=== PATIENT | male | born 1950 | race Caucasian/White ===

== ENCOUNTER 2020-10-16 01:35 | Inpatient (IN) ==
[2020-10-16 02:18] LABS: Basophils % 0.3 %; Eosinophils % 0.1 %; Hematocrit 34.5 % (37.5-50.1); Hemoglobin 11.4 g/dL (12.9-16.9); Immature Granulocytes % 1.3 % (0-4); Lymphocytes # 0.6 K/mcL (0.6-4.6); Lymphocytes % 5.1 %; Mean Corpuscular Hemoglobin 30.3 pg (28.0-33.3); Mean Corpuscular Volume 91.8 fL (83.0-100.0); Mean Platelet Volume 8.5 fL (9.4-12.4); Monocytes # 0.4 K/mcL (0.0-1.3); Monocytes % 3.3 %; Neutrophils # 10.8 K/mcL (1.6-8.9); Platelet Count 245 K/mcL (140-400); Red Blood Count 3.76 M/mcL (4.19-5.50); Red Cell Distribution Width 12.6 % (11.5-14.5); Segmented Neutrophils % 89.9 %
[2020-10-16 02:43] LABS: Alanine Aminotransferase 19 Units/L (7-52); Albumin 3.2 g/dL (3.5-5.7); Alkaline Phosphatase 79 Units/L (34-104); Aspartate Amino Transferase 13 Units/L (13-39); BUN/Creatinine Ratio 21 (6-26); Bilirubin,Direct 0.1 mg/dL (0.0-0.2); Bilirubin,Indirect 0.3 mg/dL (0.0-1.0); Bilirubin,Total 0.4 mg/dL (0.3-1.0); Blood Urea Nitrogen 19 mg/dL (8-23); Calcium 8.6 mg/dL (8.6-10.3); Carbon Dioxide 24 mEq/L (23-29); Chloride 98 mEq/L (98-107); Globulin 3.1 g/dL (2.4-3.5); Glucose 233 mg/dL (70-105); Osmolality,Calculated 284 (280-300); Potassium 3.8 mEq/L (3.5-5.1); Sodium 132 mEq/L (136-145); Total Protein 6.3 g/dL (6.4-8.9); Troponin I 0.06 ng/mL (< 0.04); Uric Acid 3.5 mg/dL (2.3-7.6); eGFR For African Americans > 60 (> 60); eGFR For Non-African Americans > 60 (> 60)
[2020-10-16] MEDS ORDERED: Aspirin 81 MG TAB.CHEW PO ONE (02:45)
[2020-10-16] MEDS ORDERED: Piperacillin/Tazobactam 3.375 GM in 0.9 % Sodium Chloride Mini Bag 100 ML IVPB ONE (02:49)
[2020-10-16] MEDS ORDERED: 0.9 % Sodium Chloride 1,000 ML IVC ONE (02:49)
[2020-10-16] MEDS ORDERED: Ibuprofen 400 MG TABLET PO ONE (03:39)
[2020-10-16] MEDS ORDERED: Piperacillin/Tazobactam 3.375 GM in Water for inj. (sterile) 20 ML IVP ONE (04:00)
[2020-10-16 04:42] LABS: C-Reactive Protein 253 mg/L (Less than 10); Creatine Kinase 83 Units/L (30-223)
[2020-10-16] MEDS ORDERED: *HR* OxyCODONE Immed Rel 5 MG TABLET PO PRN ×2 (04:59→05:06)
[2020-10-16] MEDS ORDERED: Naloxone 0.4 MG/ML INJ IVP PRN (04:59)
[2020-10-16] MEDS ORDERED: D5% in Water 1,000 ML IVC PRN (05:11)
[2020-10-16] MEDS ORDERED: Dextrose Gel 15 GM/37.5 ML TUBE PO PRN ×2 (05:11)
[2020-10-16] MEDS ORDERED: *HR* Dextrose 50 % in Water (Vial) 50 ML VIAL IVP PRN (05:11)
[2020-10-16] MEDS: CeFAZolin 2 GM/120 ML BAG IVPB SCH ×2 (06:13→12:04)
[2020-10-16] MEDS: Gabapentin 100 MG CAPSULE PO SCH ×4 (06:14→22:25)
[2020-10-16] MEDS: Acetaminophen 325 MG TABLET PO PRN ×2 (07:36→17:16)
[2020-10-16] MEDS: Insulin LISPRO 300 UNITS/3 ML VIAL SUBQ SCH ×4 (07:37→22:11)
[2020-10-16] MEDS: Insulin DETEMIR 100 UNIT/ML X5UNITS SUBQ SCH ×2 (08:25→22:20)
[2020-10-16] MEDS: Aspirin 81 MG TAB.CHEW PO SCH (08:26)
[2020-10-16 08:30] LABS: Bilirubin,Urine Negative (Negative); Blood,Urine Negative (Negative); Clarity,Urine Clear (Clear); Color,Urine Yellow (Yellow); Glucose,Urine (UA) 100 mg/dL (Normal); Ketones,Urine Negative (Negative); Leukocyte Esterase,Urine Negative (Negative); Mucus,Urine Few per lpf (None-Few); Nitrite,Urine Negative (Negative); Protein,Urine 70 mg/dL (Neg-Trace); RBC,Urine 0-3 per hpf (0-3); Specific Gravity,Urine > 1.030 (1.010-1.025); Squamous Epithelial Cell,Urine Few per hpf (None-Few); Urobilinogen,Urine Normal (Normal); WBC,Urine 0-3 per hpf (0-3)
[2020-10-16 11:26] LABS: Adenovirus Not Detected (Not Detect); Bordetella Pertussis Not Detected (Not Detect); Chlamydophila pneumoniae Not Detected (Not Detect); Coronavirus 229E Not Detected (Not Detect); Coronavirus HKU1 Not Detected (Not Detect); Coronavirus NL63 Not Detected (Not Detect); Coronavirus OC43 Not Detected (Not Detect); Human Metapneumovirus Not Detected (Not Detect); Human Rhinovirus/Enterovirus Not Detected (Not Detect); Influenza A Subtype 2009 H1 Not Detected (Not Detect); Influenza B Not Detected (Not Detect); Mycoplasma pneumoniae Not Detected (Not Detect); Parainfluenza Virus 1 Not Detected (Not Detect); Parainfluenza Virus 2 Not Detected (Not Detect); Parainfluenza Virus 3 Not Detected (Not Detect); Parainfluenza Virus 4 Not Detected (Not Detect); Respiratory Syncytial Virus Not Detected (Not Detect); SARS-CoV-2 Not Detected (Not Detect)
[2020-10-16] MEDS ORDERED: Isovue-370 500 ML BOTTLE IVP ONE (13:12)
[2020-10-16] MEDS: Piperacillin/Tazobactam 3.375 GM in 0.9 % Sodium Chloride Mini Bag 100 ML IVPB SCH ×2 (15:22→23:59)
[2020-10-16] MEDS: 0.9 % Sodium Chloride 1,000 ML IVC SCH (17:37)
[2020-10-16 17:42] LABS: Alanine Aminotransferase 16 Units/L (7-52); Albumin 2.7 g/dL (3.5-5.7); Albumin/Globulin Ratio 0.9 (1.1-2.2); Alkaline Phosphatase 68 Units/L (34-104); Aspartate Amino Transferase 14 Units/L (13-39); BUN/Creatinine Ratio 23 (6-26); Bilirubin,Total 0.3 mg/dL (0.3-1.0); Blood Urea Nitrogen 18 mg/dL (8-23); Calcium 8.1 mg/dL (8.6-10.3); Carbon Dioxide 25 mEq/L (23-29); Chloride 98 mEq/L (98-107); Globulin 2.9 g/dL (2.4-3.5); Glucose 218 mg/dL (70-105); Osmolality,Calculated 279 (280-300); Potassium 3.8 mEq/L (3.5-5.1); Sodium 130 mEq/L (136-145); Total Protein 5.6 g/dL (6.4-8.9); Troponin I 0.03 ng/mL (< 0.04); eGFR For African Americans > 60 (> 60); eGFR For Non-African Americans > 60 (> 60)
[2020-10-16 17:43] LABS: Hematocrit 33.9 % (37.5-50.1); Mean Corpuscular HGB Conc 32.4 g/dL (31.6-35.5); Mean Corpuscular Hemoglobin 29.6 pg (28.0-33.3); Mean Corpuscular Volume 91.1 fL (83.0-100.0); Mean Platelet Volume 8.3 fL (9.4-12.4); Platelet Count 212 K/mcL (140-400); Red Blood Count 3.72 M/mcL (4.19-5.50); Red Cell Distribution Width 12.7 % (11.5-14.5); White Blood Count 10.6 K/mcL (4.3-11.1)
[2020-10-16] MEDS ORDERED: *HR* Heparin 5,000 UNIT/ML VIAL SQ SCH (18:00)
[2020-10-16] MEDS: Dorzolamide/Timolol OPTH 10 ML BOTTLE BOTH EYES SCH (22:24)
[2020-10-16] MEDS: Latanoprost 2.5 ML BOTTLE BOTH EYES SCH (22:25)
[2020-10-17] MEDS: *HR* Enoxaparin 40 MG/0.4 ML SYRINGE SQ SCH (05:34)
[2020-10-17 06:37] LABS: Hematocrit 31.6 % (37.5-50.1); Hemoglobin 10.3 g/dL (12.9-16.9); Mean Corpuscular HGB Conc 32.6 g/dL (31.6-35.5); Mean Corpuscular Hemoglobin 29.6 pg (28.0-33.3); Mean Corpuscular Volume 90.8 fL (83.0-100.0); Mean Platelet Volume 8.6 fL (9.4-12.4); Platelet Count 208 K/mcL (140-400); Red Blood Count 3.48 M/mcL (4.19-5.50); Red Cell Distribution Width 12.7 % (11.5-14.5)
[2020-10-17 07:03] LABS: BUN/Creatinine Ratio 22 (6-26); Blood Urea Nitrogen 14 mg/dL (8-23); Calcium 8.2 mg/dL (8.6-10.3); Carbon Dioxide 21 mEq/L (23-29); Chloride 101 mEq/L (98-107); Glucose 97 mg/dL (70-105); Osmolality,Calculated 274 (280-300); Potassium 3.6 mEq/L (3.5-5.1); Sodium 132 mEq/L (136-145); eGFR For African Americans > 60 (> 60); eGFR For Non-African Americans > 60 (> 60)
[2020-10-17] MEDS: Piperacillin/Tazobactam 3.375 GM in 0.9 % Sodium Chloride Mini Bag 100 ML IVPB SCH ×2 (07:36→16:55)
[2020-10-17] MEDS: 0.9 % Sodium Chloride 1,000 ML IVC SCH ×2 (07:39→21:56)
[2020-10-17] MEDS: Dorzolamide/Timolol OPTH 10 ML BOTTLE BOTH EYES SCH ×2 (07:43→21:51)
[2020-10-17] MEDS: Aspirin Enteric Coated 81 MG Tablet PO SCH (07:43)
[2020-10-17] MEDS: Aspirin 81 MG TAB.CHEW PO SCH (07:44)
[2020-10-17] MEDS: Gabapentin 100 MG CAPSULE PO SCH ×4 (07:45→21:47)
[2020-10-17] MEDS: Insulin LISPRO 300 UNITS/3 ML VIAL SUBQ SCH ×4 (07:52→21:51)
[2020-10-17] MEDS ORDERED: NON-FORMULARY MEDICATION 1 EACH EACH (Insulin Glargine [Lantus] 300 UNIT/3 ML Mls) SQ SCH (13:15)
[2020-10-17] MEDS: Vancomycin 1,250 MG/262.5 ML IV.SOLN IVPB SCH (16:55)
[2020-10-17] MEDS: Insulin DETEMIR 100 UNIT/ML X5UNITS SUBQ SCH (21:41)
[2020-10-17] MEDS: Latanoprost 2.5 ML BOTTLE BOTH EYES SCH (21:52)
[2020-10-18] MEDS: Piperacillin/Tazobactam 3.375 GM in 0.9 % Sodium Chloride Mini Bag 100 ML IVPB SCH ×2 (00:07→08:42)
[2020-10-18 00:46] LABS: Basophils % 0.3 %; Eosinophils # 0.1 K/mcL (0.0-0.6); Hematocrit 29.7 % (37.5-50.1); Hemoglobin 9.9 g/dL (12.9-16.9); Immature Granulocytes % 0.9 % (0-4); Lymphocytes # 0.7 K/mcL (0.6-4.6); Lymphocytes % 9.1 %; Mean Corpuscular HGB Conc 33.3 g/dL (31.6-35.5); Mean Platelet Volume 8.6 fL (9.4-12.4); Monocytes # 0.5 K/mcL (0.0-1.3); Monocytes % 6.9 %; Neutrophils # 6.3 K/mcL (1.6-8.9); Platelet Count 193 K/mcL (140-400); Red Cell Distribution Width 12.5 % (11.5-14.5); Segmented Neutrophils % 81.8 %; White Blood Count 7.7 K/mcL (4.3-11.1)
[2020-10-18 01:00] LABS: Chol/HDL Ratio 4.7 (0-4.9)
[2020-10-18 02:27] LABS: BUN/Creatinine Ratio 22 (6-26); Blood Urea Nitrogen 13 mg/dL (8-23); Calcium 7.9 mg/dL (8.6-10.3); Carbon Dioxide 23 mEq/L (23-29); Chloride 102 mEq/L (98-107); Ferritin 979 ng/mL (20-250); Glucose 184 mg/dL (70-105); Iron < 10 mcg/dL (65-175); Magnesium 1.7 mg/dL (1.6-2.6); Osmolality,Calculated 277 (280-300); Phosphorous 2.7 mg/dL (2.7-4.5); Potassium 3.5 mEq/L (3.5-5.1); Sodium 131 mEq/L (136-145); Transferrin 79 mg/dL (203-362); eGFR For African Americans > 60 (> 60); eGFR For Non-African Americans > 60 (> 60)
[2020-10-18] MEDS: Vancomycin 1,250 MG/262.5 ML IV.SOLN IVPB SCH (03:23)
[2020-10-18] MEDS: *HR* Enoxaparin 40 MG/0.4 ML SYRINGE SQ SCH (04:57)
[2020-10-18] MEDS: Gabapentin 100 MG CAPSULE PO SCH ×3 (08:42→20:23)
[2020-10-18] MEDS: Dorzolamide/Timolol OPTH 10 ML BOTTLE BOTH EYES SCH ×2 (08:43→20:23)
[2020-10-18] MEDS: Aspirin Enteric Coated 81 MG Tablet PO SCH (08:48)
[2020-10-18] MEDS ORDERED: Perflutren Lipid Microsphere 1.3 ML in 0.9 % Sodium Chloride 8.7 ML IVP PRN (08:52)
[2020-10-18] MEDS ORDERED: Gadolinium Contrast Agent (WT Based) IV PRN ×3 (09:33→11:14)
[2020-10-18 10:48] LABS: Estimated Average Glucose 163 mg/dl; Hemoglobin A1C 7.3 %
[2020-10-18] MEDS: Insulin LISPRO 300 UNITS/3 ML VIAL SUBQ SCH ×4 (16:33→20:23)
[2020-10-18] MEDS: ceFAZolin 2,000 MG in 0.9 % Sodium Chloride 100 ML IVPB SCH ×2 (16:51→23:33)
[2020-10-18] MEDS: 0.9 % Sodium Chloride 1,000 ML IVC SCH ×2 (16:51→19:48)
[2020-10-18] MEDS: Ondansetron ODT 4 MG TAB.RAPDIS SL PRN (17:00)
[2020-10-18] MEDS: Latanoprost 2.5 ML BOTTLE BOTH EYES SCH (20:23)
[2020-10-18] MEDS: Insulin DETEMIR 100 UNIT/ML X5UNITS SUBQ SCH (20:25)
[2020-10-18] MEDS ORDERED: Melatonin 3 MG TABLET PO ONE (21:35)
[2020-10-19 02:45] LABS: BUN/Creatinine Ratio 29 (6-26); Blood Urea Nitrogen 15 mg/dL (8-23); Calcium 7.7 mg/dL (8.6-10.3); Carbon Dioxide 25 mEq/L (23-29); Chloride 102 mEq/L (98-107); Glucose 173 mg/dL (70-105); Magnesium 1.8 mg/dL (1.6-2.6); Osmolality,Calculated 279 (280-300); Phosphorous 2.9 mg/dL (2.7-4.5); Potassium 3.5 mEq/L (3.5-5.1); Sodium 132 mEq/L (136-145); eGFR For African Americans > 60 (> 60); eGFR For Non-African Americans > 60 (> 60)
[2020-10-19] MEDS: Acetaminophen 325 MG TABLET PO PRN ×2 (05:01→21:20)
[2020-10-19] MEDS: *HR* Enoxaparin 40 MG/0.4 ML SYRINGE SQ SCH (05:03)
[2020-10-19] MEDS: ceFAZolin 2,000 MG in 0.9 % Sodium Chloride 100 ML IVPB SCH ×2 (09:14→17:27)
[2020-10-19] MEDS: Dorzolamide/Timolol OPTH 10 ML BOTTLE BOTH EYES SCH ×2 (09:15→20:54)
[2020-10-19] MEDS: Aspirin Enteric Coated 81 MG Tablet PO SCH (09:15)
[2020-10-19] MEDS: Insulin LISPRO 300 UNITS/3 ML VIAL SUBQ SCH ×4 (09:15→20:52)
[2020-10-19] MEDS: Gabapentin 100 MG CAPSULE PO SCH ×3 (09:16→20:55)
[2020-10-19] MEDS: 0.9 % Sodium Chloride 1,000 ML IVC SCH (10:43)
[2020-10-19] MEDS: Ondansetron ODT 4 MG TAB.RAPDIS SL PRN (11:10)
[2020-10-19] MEDS: metroNIDAZOLE 500 MG TABLET PO SCH ×2 (15:43→20:54)
[2020-10-19] MEDS: levoFLOXacin 750 MG TABLET PO SCH (15:43)
[2020-10-19] MEDS: Lactobacillus 1 EACH CAP.SPRINK PO SCH (20:54)
[2020-10-19] MEDS: Insulin DETEMIR 100 UNIT/ML X5UNITS SUBQ SCH (20:54)
[2020-10-19] MEDS: Latanoprost 2.5 ML BOTTLE BOTH EYES SCH (20:55)
[2020-10-20] MEDS: ceFAZolin 2,000 MG in 0.9 % Sodium Chloride 100 ML IVPB SCH ×5 (00:25→23:46)
[2020-10-20 05:31] LABS: Basophils % 0.3 %; Eosinophils # 0.1 K/mcL (0.0-0.6); Eosinophils % 1.6 %; Hematocrit 34.1 % (37.5-50.1); Hemoglobin 11.1 g/dL (12.9-16.9); Immature Granulocytes % 1.8 % (0-4); Lymphocytes % 10.8 %; Mean Corpuscular HGB Conc 32.6 g/dL (31.6-35.5); Mean Corpuscular Hemoglobin 29.7 pg (28.0-33.3); Mean Corpuscular Volume 91.2 fL (83.0-100.0); Mean Platelet Volume 8.8 fL (9.4-12.4); Monocytes # 0.5 K/mcL (0.0-1.3); Platelet Count 254 K/mcL (140-400); Red Blood Count 3.74 M/mcL (4.19-5.50); Red Cell Distribution Width 12.6 % (11.5-14.5); Segmented Neutrophils % 79.5 %; White Blood Count 8.8 K/mcL (4.3-11.1)
[2020-10-20 05:45] LABS: BUN/Creatinine Ratio 21 (6-26); Blood Urea Nitrogen 11 mg/dL (8-23); Calcium 8.3 mg/dL (8.6-10.3); Carbon Dioxide 28 mEq/L (23-29); Chloride 102 mEq/L (98-107); Glucose 189 mg/dL (70-105); Magnesium 1.9 mg/dL (1.6-2.6); Osmolality,Calculated 284 (280-300); Phosphorous 2.9 mg/dL (2.7-4.5); Potassium 3.7 mEq/L (3.5-5.1); Sodium 135 mEq/L (136-145); eGFR For African Americans > 60 (> 60); eGFR For Non-African Americans > 60 (> 60)
[2020-10-20] MEDS: *HR* Enoxaparin 40 MG/0.4 ML SYRINGE SQ SCH (06:25)
[2020-10-20] MEDS: 0.9 % Sodium Chloride 1,000 ML IVC SCH (06:26)
[2020-10-20] MEDS: metroNIDAZOLE 500 MG TABLET PO SCH ×3 (08:27→20:36)
[2020-10-20] MEDS: Aspirin Enteric Coated 81 MG Tablet PO SCH (08:27)
[2020-10-20] MEDS: levoFLOXacin 750 MG TABLET PO SCH (08:27)
[2020-10-20] MEDS: Lactobacillus 1 EACH CAP.SPRINK PO SCH ×2 (08:27→20:36)
[2020-10-20] MEDS: Gabapentin 100 MG CAPSULE PO SCH ×3 (08:27→20:36)
[2020-10-20] MEDS: Insulin LISPRO 300 UNITS/3 ML VIAL SUBQ SCH ×4 (08:31→20:36)
[2020-10-20] MEDS: Dorzolamide/Timolol OPTH 10 ML BOTTLE BOTH EYES SCH ×2 (08:32→20:36)
[2020-10-20] MEDS: Insulin DETEMIR 100 UNIT/ML X5UNITS SUBQ SCH (20:36)
[2020-10-20] MEDS: Latanoprost 2.5 ML BOTTLE BOTH EYES SCH (20:36)
[2020-10-20] MEDS: Acetaminophen 325 MG TABLET PO PRN (23:47)
[2020-10-21] MEDS: 0.9 % Sodium Chloride 1,000 ML IVC SCH (03:52)
[2020-10-21] MEDS: *HR* Enoxaparin 40 MG/0.4 ML SYRINGE SQ SCH (05:26)
[2020-10-21] MEDS: Insulin LISPRO 300 UNITS/3 ML VIAL SUBQ SCH ×4 (08:39→22:01)
[2020-10-21] MEDS: Aspirin Enteric Coated 81 MG Tablet PO SCH (08:44)
[2020-10-21] MEDS: levoFLOXacin 750 MG TABLET PO SCH (08:44)
[2020-10-21] MEDS: Lactobacillus 1 EACH CAP.SPRINK PO SCH ×2 (08:44→22:00)
[2020-10-21] MEDS: ceFAZolin 2,000 MG in 0.9 % Sodium Chloride 100 ML IVPB SCH ×2 (08:44→16:06)
[2020-10-21] MEDS: metroNIDAZOLE 500 MG TABLET PO SCH ×3 (08:45→22:01)
[2020-10-21] MEDS: Gabapentin 100 MG CAPSULE PO SCH ×3 (08:47→22:01)
[2020-10-21] MEDS: Dorzolamide/Timolol OPTH 10 ML BOTTLE BOTH EYES SCH ×2 (08:47→22:00)
[2020-10-21 10:40] LABS: Basophils % 0.4 %; Eosinophils # 0.2 K/mcL (0.0-0.6); Eosinophils % 1.5 %; Hematocrit 33.9 % (37.5-50.1); Hemoglobin 11.1 g/dL (12.9-16.9); Immature Granulocytes % 4.5 % (0-4); Lymphocytes # 1.1 K/mcL (0.6-4.6); Mean Corpuscular HGB Conc 32.7 g/dL (31.6-35.5); Mean Corpuscular Hemoglobin 30.2 pg (28.0-33.3); Mean Corpuscular Volume 92.1 fL (83.0-100.0); Mean Platelet Volume 8.7 fL (9.4-12.4); Monocytes # 0.5 K/mcL (0.0-1.3); Neutrophils # 8.2 K/mcL (1.6-8.9); Platelet Count 323 K/mcL (140-400); Red Blood Count 3.68 M/mcL (4.19-5.50); Red Cell Distribution Width 12.7 % (11.5-14.5); Segmented Neutrophils % 78.6 %; White Blood Count 10.5 K/mcL (4.3-11.1)
[2020-10-21 10:59] LABS: BUN/Creatinine Ratio 17 (6-26); Blood Urea Nitrogen 9 mg/dL (8-23); Calcium 8.1 mg/dL (8.6-10.3); Carbon Dioxide 30 mEq/L (23-29); Chloride 100 mEq/L (98-107); Glucose 202 mg/dL (70-105); Osmolality,Calculated 284 (280-300); Potassium 3.5 mEq/L (3.5-5.1); Sodium 135 mEq/L (136-145); eGFR For African Americans > 60 (> 60); eGFR For Non-African Americans > 60 (> 60)
[2020-10-21] MEDS ORDERED: *HR* LORazepam 1 MG TABLET PO ONE (12:27)
[2020-10-21] MEDS: Insulin DETEMIR 100 UNIT/ML X5UNITS SUBQ SCH (22:01)
[2020-10-21] MEDS: Latanoprost 2.5 ML BOTTLE BOTH EYES SCH (22:01)
[2020-10-22] MEDS: ceFAZolin 2,000 MG in 0.9 % Sodium Chloride 100 ML IVPB SCH ×4 (00:30→16:52)
[2020-10-22] MEDS: 0.9 % Sodium Chloride 1,000 ML IVC SCH (00:30)
[2020-10-22] MEDS: *HR* Enoxaparin 40 MG/0.4 ML SYRINGE SQ SCH (05:21)
[2020-10-22] MEDS ORDERED: *HR* LORazepam 1 MG TABLET PO ONE (08:16)
[2020-10-22] MEDS: Insulin LISPRO 300 UNITS/3 ML VIAL SUBQ SCH ×5 (08:35→20:29)
[2020-10-22] MEDS: metroNIDAZOLE 500 MG TABLET PO SCH ×4 (10:38→20:29)
[2020-10-22] MEDS: levoFLOXacin 750 MG TABLET PO SCH (10:39)
[2020-10-22] MEDS: Lactobacillus 1 EACH CAP.SPRINK PO SCH ×2 (10:40→20:29)
[2020-10-22] MEDS: Gabapentin 100 MG CAPSULE PO SCH ×4 (10:40→20:30)
[2020-10-22] MEDS: Aspirin Enteric Coated 81 MG Tablet PO SCH (10:40)
[2020-10-22] MEDS: Dorzolamide/Timolol OPTH 10 ML BOTTLE BOTH EYES SCH ×2 (10:46→20:30)
[2020-10-22 12:21] LABS: Hematocrit 30.9 % (37.5-50.1); Hemoglobin 10.3 g/dL (12.9-16.9); Mean Corpuscular HGB Conc 33.3 g/dL (31.6-35.5); Mean Corpuscular Hemoglobin 29.9 pg (28.0-33.3); Mean Corpuscular Volume 89.6 fL (83.0-100.0); Mean Platelet Volume 8.8 fL (9.4-12.4); Platelet Count 349 K/mcL (140-400); Red Blood Count 3.45 M/mcL (4.19-5.50); Red Cell Distribution Width 12.8 % (11.5-14.5); White Blood Count 11.4 K/mcL (4.3-11.1)
[2020-10-22 12:30] LABS: BUN/Creatinine Ratio 21 (6-26); Blood Urea Nitrogen 11 mg/dL (8-23); Calcium 7.9 mg/dL (8.6-10.3); Carbon Dioxide 28 mEq/L (23-29); Chloride 99 mEq/L (98-107); Glucose 205 mg/dL (70-105); Osmolality,Calculated 281 (280-300); Potassium 3.9 mEq/L (3.5-5.1); Sodium 133 mEq/L (136-145); eGFR For African Americans > 60 (> 60); eGFR For Non-African Americans > 60 (> 60)
[2020-10-22 12:48] LABS: Basophils # 0.2 K/mcL (0.0-0.2); Eosinophils # 0.5 K/mcL (0.0-0.6); Lymphocytes # 1.8 K/mcL (0.6-4.6); Monocytes # 0.2 K/mcL (0.0-1.3); Neutrophils # 8.2 K/mcL (1.6-8.9)
[2020-10-22] MEDS: clonazePAM 1 MG TABLET PO SCH (20:28)
[2020-10-22] MEDS: Insulin DETEMIR 100 UNIT/ML X5UNITS SUBQ SCH (20:30)
[2020-10-22] MEDS: Latanoprost 2.5 ML BOTTLE BOTH EYES SCH (20:30)
[2020-10-23] MEDS: ceFAZolin 2,000 MG in 0.9 % Sodium Chloride 100 ML IVPB SCH ×3 (00:29→16:07)
[2020-10-23] MEDS: 0.9 % Sodium Chloride 1,000 ML IVC SCH ×2 (00:34→12:19)
[2020-10-23] MEDS: Acetaminophen 325 MG TABLET PO PRN (02:19)
[2020-10-23] MEDS: *HR* Enoxaparin 40 MG/0.4 ML SYRINGE SQ SCH (05:22)
[2020-10-23 07:05] LABS: Hematocrit 33.6 % (37.5-50.1); Hemoglobin 11.1 g/dL (12.9-16.9); Mean Corpuscular Hemoglobin 29.5 pg (28.0-33.3); Mean Corpuscular Volume 89.4 fL (83.0-100.0); Mean Platelet Volume 8.6 fL (9.4-12.4); Monocytes # 0.7 K/mcL (0.0-1.3); Platelet Count 423 K/mcL (140-400); Red Blood Count 3.76 M/mcL (4.19-5.50); White Blood Count 11.3 K/mcL (4.3-11.1)
[2020-10-23 07:19] LABS: BUN/Creatinine Ratio 21 (6-26); Blood Urea Nitrogen 12 mg/dL (8-23); Calcium 8.3 mg/dL (8.6-10.3); Carbon Dioxide 27 mEq/L (23-29); Chloride 101 mEq/L (98-107); Glucose 150 mg/dL (70-105); Osmolality,Calculated 283 (280-300); Sodium 135 mEq/L (136-145); eGFR For African Americans > 60 (> 60); eGFR For Non-African Americans > 60 (> 60)
[2020-10-23 07:22] LABS: Lymphocytes # 1.6 K/mcL (0.6-4.6); Neutrophils # 8.8 K/mcL (1.6-8.9); Platelet Estimate Normal (Normal); Toxic Granulation Present (Not Present)
[2020-10-23] MEDS: Insulin LISPRO 300 UNITS/3 ML VIAL SUBQ SCH ×4 (09:27→22:07)
[2020-10-23] MEDS: levoFLOXacin 750 MG TABLET PO SCH (09:42)
[2020-10-23] MEDS: clonazePAM 1 MG TABLET PO SCH ×2 (09:42→22:04)
[2020-10-23] MEDS: Lactobacillus 1 EACH CAP.SPRINK PO SCH ×2 (09:42→22:06)
[2020-10-23] MEDS: Aspirin Enteric Coated 81 MG Tablet PO SCH (09:42)
[2020-10-23] MEDS: metroNIDAZOLE 500 MG TABLET PO SCH ×3 (09:43→22:07)
[2020-10-23] MEDS: Dorzolamide/Timolol OPTH 10 ML BOTTLE BOTH EYES SCH ×2 (09:43→22:06)
[2020-10-23] MEDS: Gabapentin 100 MG CAPSULE PO SCH ×3 (09:43→22:07)
[2020-10-23] MEDS ORDERED: Lidocaine Viscous Oral Soln 15 ML SOLUTION MM PRN (10:52)
[2020-10-23] MEDS ORDERED: 0.9 % Sodium Chloride 500 ML IVC ONE (10:53)
[2020-10-23] MEDS: *HR* FentaNYL (PF) 100 MCG/2 ML VIAL IVP PRN ×3 (11:15→11:25)
[2020-10-23] MEDS: *HR* Midazolam HCl 5 MG/5 ML VIAL IVP PRN ×4 (11:15→11:30)
[2020-10-23] MEDS: Latanoprost 2.5 ML BOTTLE BOTH EYES SCH (22:07)
[2020-10-23] MEDS: Insulin DETEMIR 100 UNIT/ML X5UNITS SUBQ SCH (22:07)
[2020-10-24] MEDS: 0.9 % Sodium Chloride 1,000 ML IVC SCH (00:46)
[2020-10-24] MEDS: ceFAZolin 2,000 MG in 0.9 % Sodium Chloride 100 ML IVPB SCH ×3 (00:47→15:24)
[2020-10-24] MEDS: *HR* Enoxaparin 40 MG/0.4 ML SYRINGE SQ SCH (05:46)
[2020-10-24 06:41] LABS: BUN/Creatinine Ratio 20 (6-26); Blood Urea Nitrogen 11 mg/dL (8-23); Calcium 8.4 mg/dL (8.6-10.3); Carbon Dioxide 29 mEq/L (23-29); Chloride 100 mEq/L (98-107); Glucose 214 mg/dL (70-105); Hematocrit 33.8 % (37.5-50.1); Hemoglobin 10.9 g/dL (12.9-16.9); Mean Corpuscular HGB Conc 32.2 g/dL (31.6-35.5); Mean Corpuscular Hemoglobin 29.8 pg (28.0-33.3); Mean Corpuscular Volume 92.3 fL (83.0-100.0); Mean Platelet Volume 8.4 fL (9.4-12.4); Osmolality,Calculated 284 (280-300); Platelet Count 470 K/mcL (140-400); Red Blood Count 3.66 M/mcL (4.19-5.50); Red Cell Distribution Width 12.8 % (11.5-14.5); Sodium 134 mEq/L (136-145); eGFR For African Americans > 60 (> 60); eGFR For Non-African Americans > 60 (> 60)
[2020-10-24 07:08] LABS: Lymphocytes # 1.3 K/mcL (0.6-4.6); Monocytes # 0.5 K/mcL (0.0-1.3); Neutrophils # 11.2 K/mcL (1.6-8.9)
[2020-10-24 07:09] LABS: Reactive Lymphocytes Present (Not Present); Toxic Granulation Present (Not Present)
[2020-10-24] MEDS: Insulin LISPRO 300 UNITS/3 ML VIAL SUBQ SCH ×4 (07:37→22:15)
[2020-10-24] MEDS: clonazePAM 1 MG TABLET PO SCH ×2 (07:49→22:00)
[2020-10-24] MEDS: levoFLOXacin 750 MG TABLET PO SCH (07:49)
[2020-10-24] MEDS: Dorzolamide/Timolol OPTH 10 ML BOTTLE BOTH EYES SCH ×2 (07:49→21:58)
[2020-10-24] MEDS: metroNIDAZOLE 500 MG TABLET PO SCH ×3 (07:49→21:59)
[2020-10-24] MEDS: Gabapentin 100 MG CAPSULE PO SCH ×3 (07:49→22:01)
[2020-10-24] MEDS: Aspirin Enteric Coated 81 MG Tablet PO SCH (07:49)
[2020-10-24] MEDS: Lactobacillus 1 EACH CAP.SPRINK PO SCH ×2 (07:49→21:58)
[2020-10-24] MEDS ORDERED: clonazePAM 1 MG TABLET PO ONE (15:12)
[2020-10-24] MEDS: Latanoprost 2.5 ML BOTTLE BOTH EYES SCH (22:01)
[2020-10-24] MEDS: Insulin DETEMIR 100 UNIT/ML X5UNITS SUBQ SCH (22:15)
[2020-10-25] MEDS: ceFAZolin 2,000 MG in 0.9 % Sodium Chloride 100 ML IVPB SCH ×3 (00:39→16:00)
[2020-10-25 04:56] LABS: Hematocrit 37.5 % (37.5-50.1); Hemoglobin 12.2 g/dL (12.9-16.9); Mean Corpuscular HGB Conc 32.5 g/dL (31.6-35.5); Mean Corpuscular Volume 92.1 fL (83.0-100.0); Mean Platelet Volume 8.3 fL (9.4-12.4); Platelet Count 464 K/mcL (140-400); Red Blood Count 4.07 M/mcL (4.19-5.50); Red Cell Distribution Width 13.2 % (11.5-14.5); White Blood Count 10.5 K/mcL (4.3-11.1)
[2020-10-25] MEDS: 0.9 % Sodium Chloride 1,000 ML IVC SCH ×2 (04:58→22:50)
[2020-10-25] MEDS: *HR* Enoxaparin 40 MG/0.4 ML SYRINGE SQ SCH (04:58)
[2020-10-25 05:16] LABS: BUN/Creatinine Ratio 19 (6-26); Blood Urea Nitrogen 11 mg/dL (8-23); Calcium 8.3 mg/dL (8.6-10.3); Carbon Dioxide 25 mEq/L (23-29); Chloride 100 mEq/L (98-107); Glucose 263 mg/dL (70-105); Osmolality,Calculated 287 (280-300); Potassium 4.2 mEq/L (3.5-5.1); Sodium 134 mEq/L (136-145); eGFR For African Americans > 60 (> 60); eGFR For Non-African Americans > 60 (> 60)
[2020-10-25] MEDS: Insulin LISPRO 300 UNITS/3 ML VIAL SUBQ SCH ×4 (07:50→21:42)
[2020-10-25] MEDS: clonazePAM 1 MG TABLET PO SCH ×2 (07:51→22:46)
[2020-10-25] MEDS: metroNIDAZOLE 500 MG TABLET PO SCH ×3 (07:56→22:48)
[2020-10-25] MEDS: Gabapentin 100 MG CAPSULE PO SCH ×3 (07:56→22:48)
[2020-10-25] MEDS: Lactobacillus 1 EACH CAP.SPRINK PO SCH ×2 (07:56→22:48)
[2020-10-25] MEDS: Dorzolamide/Timolol OPTH 10 ML BOTTLE BOTH EYES SCH ×2 (07:56→22:48)
[2020-10-25] MEDS: Aspirin Enteric Coated 81 MG Tablet PO SCH (07:56)
[2020-10-25] MEDS: levoFLOXacin 750 MG TABLET PO SCH (07:56)
[2020-10-25] MEDS ORDERED: 0.9 % Sodium Chloride 250 ML ONE (08:48)
[2020-10-25] MEDS: Latanoprost 2.5 ML BOTTLE BOTH EYES SCH (22:48)
[2020-10-25] MEDS: Insulin DETEMIR 100 UNIT/ML X5UNITS SUBQ SCH (22:48)
[2020-10-26] MEDS: ceFAZolin 2,000 MG in 0.9 % Sodium Chloride 100 ML IVPB SCH ×4 (02:18→23:21)
[2020-10-26] MEDS: *HR* Enoxaparin 40 MG/0.4 ML SYRINGE SQ SCH (06:17)
[2020-10-26] MEDS: Insulin LISPRO 300 UNITS/3 ML VIAL SUBQ SCH ×4 (07:56→19:30)
[2020-10-26] MEDS: Dorzolamide/Timolol OPTH 10 ML BOTTLE BOTH EYES SCH ×2 (07:57→19:29)
[2020-10-26] MEDS ORDERED: *HR* LORazepam 2 MG/ML VIAL IVP ONE (09:05)
[2020-10-26 10:11] LABS: Influenza A PCR Negative (Negative); Influenza B PCR Negative (Negative); Resp. Syncytial Virus PCR Negative (Negative)
[2020-10-26 10:52] LABS: SARS-CoV-2 by PCR (In House) Negative (Negative)
[2020-10-26] MEDS: metroNIDAZOLE 500 MG TABLET PO SCH ×3 (11:15→19:30)
[2020-10-26] MEDS: Lactobacillus 1 EACH CAP.SPRINK PO SCH ×2 (11:15→19:29)
[2020-10-26] MEDS: clonazePAM 1 MG TABLET PO SCH ×2 (11:15→19:33)
[2020-10-26] MEDS: Aspirin Enteric Coated 81 MG Tablet PO SCH (11:15)
[2020-10-26] MEDS: Gabapentin 100 MG CAPSULE PO SCH ×3 (11:15→19:30)
[2020-10-26] MEDS: levoFLOXacin 750 MG TABLET PO SCH (11:15)
[2020-10-26] MEDS: Latanoprost 2.5 ML BOTTLE BOTH EYES SCH (19:30)
[2020-10-26] MEDS: Insulin DETEMIR 100 UNIT/ML X5UNITS SUBQ SCH (19:30)
[2020-10-26] MEDS: 0.9 % Sodium Chloride 1,000 ML IVC SCH (23:20)
[2020-10-27] MEDS: *HR* Enoxaparin 40 MG/0.4 ML SYRINGE SQ SCH (00:10)
[2020-10-27 08:02] VITALS: BP 122/74
[2020-10-27] MEDS: Aspirin Enteric Coated 81 MG Tablet PO SCH (09:05)
[2020-10-27] MEDS: Insulin LISPRO 300 UNITS/3 ML VIAL SUBQ SCH (09:05)
[2020-10-27] MEDS: ceFAZolin 2,000 MG in 0.9 % Sodium Chloride 100 ML IVPB SCH (09:05)
[2020-10-27] MEDS: Lactobacillus 1 EACH CAP.SPRINK PO SCH (09:06)
[2020-10-27] MEDS: metroNIDAZOLE 500 MG TABLET PO SCH (09:06)
[2020-10-27] MEDS: levoFLOXacin 750 MG TABLET PO SCH (09:06)
[2020-10-27] MEDS: Gabapentin 100 MG CAPSULE PO SCH (09:06)
[2020-10-27] MEDS: Dorzolamide/Timolol OPTH 10 ML BOTTLE BOTH EYES SCH (09:06)
[2020-10-27] MEDS: clonazePAM 1 MG TABLET PO SCH (09:06)
== END 2020-10-27 09:28 | DRG 871 ==
LOC: 3BNU 01:35 → EMEROOARM 01:35 → SUATTDRO 04:06 → 3BNU 04:33 → SUATTDRO 13:15 → 3BNU 10-17 12:41
PROVIDERS: ADMIT Family Medicine; ATTEND Internal Medicine

== ENCOUNTER 2020-12-19 15:22 | Inpatient (IN) ==
[2020-12-19] MEDS ORDERED: 0.9 % Sodium Chloride 1,000 ML IVC ONE ×2 (15:48→17:23)
[2020-12-19] MEDS ORDERED: Piperacillin/Tazobactam 3.375 GM in 0.9 % Sodium Chloride Mini Bag 100 ML IVPB ONE (15:48)
[2020-12-19 15:54] LABS: Red Blood Count 4.02 M/mcL (4.19-5.50)
[2020-12-19 15:55] LABS: Hematocrit 34.7 % (37.5-50.1); Hemoglobin 11.7 g/dL (12.9-16.9); Mean Corpuscular HGB Conc 33.7 g/dL (31.6-35.5); Mean Corpuscular Hemoglobin 29.1 pg (28.0-33.3); Mean Corpuscular Volume 86.3 fL (83.0-100.0); Mean Platelet Volume 8.7 fL (9.4-12.4); Platelet Count 400 K/mcL (140-400); Red Cell Distribution Width 13.6 % (11.5-14.5)
[2020-12-19 16:13] LABS: Alanine Aminotransferase 24 Units/L (7-52); Albumin/Globulin Ratio 0.9 (1.1-2.2); Alkaline Phosphatase 98 Units/L (34-104); Aspartate Amino Transferase 11 Units/L (13-39); BUN/Creatinine Ratio 39 (6-26); Bilirubin,Direct 0.1 mg/dL (0.0-0.2); Bilirubin,Indirect 0.2 mg/dL (0.0-1.0); Bilirubin,Total 0.3 mg/dL (0.3-1.0); Blood Urea Nitrogen 39 mg/dL (8-23); Calcium 9.3 mg/dL (8.6-10.3); Carbon Dioxide 22 mEq/L (23-29); Chloride 95 mEq/L (98-107); Globulin 3.5 g/dL (2.4-3.5); Glucose 313 mg/dL (70-105); Osmolality,Calculated 287 (280-300); Potassium 4.5 mEq/L (3.5-5.1); Sodium 128 mEq/L (136-145); Total Protein 6.5 g/dL (6.4-8.9); Troponin I 0.03 ng/mL (< 0.04); eGFR For African Americans > 60 (> 60); eGFR For Non-African Americans > 60 (> 60)
[2020-12-19] MEDS ORDERED: Piperacillin/Tazobactam 3.375 GM VIAL ONE (16:17)
[2020-12-19 16:39] LABS: Lymphocytes # 0.6 K/mcL (0.6-4.6); Monocytes # 0.6 K/mcL (0.0-1.3); Neutrophils # 26.9 K/mcL (1.6-8.9); Platelet Estimate Normal (Normal)
[2020-12-19 16:54] LABS: Amphetamine Screen,Urine Negative ng/mL (Cutoff=1000); Barbiturate Screen,Urine Negative ng/mL (Cutoff=200); Benzodiazepines Screen,Urine Negative ng/mL (Cutoff=200); Cannabinoid Screen,Urine Negative ng/mL (Cutoff = 50); Cocaine Screen,Urine Negative ng/mL (Cutoff= 300); Opiate Screen,Urine Negative ng/mL (Cutoff=300); Phencyclidine Screen,Urine Negative ng/mL (Cutoff=25)
[2020-12-19 16:58] LABS: Lipase 11 Units/L (11-82)
[2020-12-19 17:01] LABS: Bacteria,Urine Few per hpf (None-Few); Bilirubin,Urine Negative (Negative); Blood,Urine Small (Negative); Clarity,Urine Turbid (Clear); Color,Urine Yellow (Yellow); Glucose,Urine (UA) 50 mg/dL (Normal); Hyaline Casts,Urine Many per lpf (None Seen); Ketones,Urine 10 mg/dL (Negative); Leukocyte Esterase,Urine Trace (Negative); Mucus,Urine Few per lpf (None-Few); Nitrite,Urine Negative (Negative); Protein,Urine Trace mg/dL (Neg-Trace); Specific Gravity,Urine 1.023 (1.010-1.025); Squamous Epithelial Cell,Urine Few per hpf (None-Few); Urobilinogen,Urine Normal (Normal)
[2020-12-19] MEDS ORDERED: *HR* LORazepam 1 MG TABLET PO PRN (17:28)
[2020-12-19] MEDS ORDERED: *HR* LORazepam 2 MG/ML VIAL IM PRN (17:28)
[2020-12-19] MEDS ORDERED: polyethylene glycoL 3350 17 GM POWD.PACK PO PRN (17:28)
[2020-12-19] MEDS ORDERED: *HR* Dextrose 50 % in Water (Vial) 50 ML VIAL IVP PRN (17:31)
[2020-12-19] MEDS ORDERED: Dextrose Gel 15 GM/37.5 ML TUBE PO PRN ×2 (17:31)
[2020-12-19] MEDS ORDERED: D5% in Water 1,000 ML IVC PRN (17:31)
[2020-12-19] MEDS ORDERED: ChlorproMAZINE 25 MG/ML AMPUL IM PRN (17:32)
[2020-12-19] MEDS ORDERED: Naloxone 0.4 MG/ML INJ IVP PRN (17:33)
[2020-12-19] MEDS ORDERED: Ondansetron 4 MG/2 ML VIAL IVP PRN (17:33)
[2020-12-19] MEDS ORDERED: Acetaminophen 325 MG TABLET PO PRN (17:33)
[2020-12-19] MEDS ORDERED: chlorproMAZINE 25 MG TABLET PO PRN (17:36)
[2020-12-19] MEDS ORDERED: Insulin DETEMIR 100 UNIT/ML X5UNITS SUBQ SCH (17:45)
[2020-12-19] MEDS ORDERED: Gadolinium Contrast Agent (WT Based) IV PRN (17:57)
[2020-12-19] MEDS: clonazePAM 1 MG TABLET PO SCH (20:11)
[2020-12-19] MEDS: Insulin LISPRO 300 UNITS/3 ML VIAL SUBQ SCH ×2 (20:12→20:24)
[2020-12-19] MEDS: Dorzolamide/Timolol OPTH 10 ML BOTTLE BOTH EYES SCH (20:25)
[2020-12-19] MEDS: *HR* Heparin 5,000 UNIT/ML VIAL SQ SCH (20:25)
[2020-12-20] MEDS: Piperacillin/Tazobactam 3.375 GM in 0.9 % Sodium Chloride Mini Bag 100 ML IVPB SCH ×3 (00:13→15:55)
[2020-12-20] MEDS: *HR* Heparin 5,000 UNIT/ML VIAL SQ SCH ×2 (04:42→18:13)
[2020-12-20 07:13] LABS: Hematocrit 32.4 % (37.5-50.1); Hemoglobin 10.4 g/dL (12.9-16.9); Mean Corpuscular HGB Conc 32.1 g/dL (31.6-35.5); Mean Corpuscular Hemoglobin 28.6 pg (28.0-33.3); Mean Platelet Volume 8.6 fL (9.4-12.4); Platelet Count 295 K/mcL (140-400); Red Blood Count 3.64 M/mcL (4.19-5.50); Red Cell Distribution Width 13.9 % (11.5-14.5); White Blood Count 24.3 K/mcL (4.3-11.1)
[2020-12-20 07:30] LABS: BUN/Creatinine Ratio 55 (6-26); Blood Urea Nitrogen 30 mg/dL (8-23); Calcium 8.4 mg/dL (8.6-10.3); Carbon Dioxide 21 mEq/L (23-29); Chloride 105 mEq/L (98-107); Glucose 178 mg/dL (70-105); Osmolality,Calculated 289 (280-300); Sodium 134 mEq/L (136-145); eGFR For African Americans > 60 (> 60); eGFR For Non-African Americans > 60 (> 60)
[2020-12-20 08:38] LABS: Acinetobacter baumannii by PCR Not Detected (Not Detect); Candida albicans by PCR Not Detected (Not Detect); Candida glabrata by PCR Not Detected (Not Detect); Candida krusei by PCR Not Detected (Not Detect); Candida parapsilosis by PCR Not Detected (Not Detect); Candida tropicalis by PCR Not Detected (Not Detect); Enterobacter cloacae Cmplx PCR Not Detected (Not Detect); Enterobacteriaceae by PCR Not Detected (Not Detect); Enterococcus by PCR Not Detected (Not Detect); Escherichia coli by PCR Not Detected (Not Detect); Klebsiella oxytoca by PCR Not Detected (Not Detect); Klebsiella pneumoniae by PCR Not Detected (Not Detect); Proteus by PCR Not Detected (Not Detect); Pseudomonas aeruginosa by PCR Not Detected (Not Detect); Serratia marcescens by PCR Not Detected (Not Detect); Staphylococcus aureus by PCR DETECTED (Not Detect); Streptococcus agalactiae(B)PCR Not Detected (Not Detect); Streptococcus by PCR Not Detected (Not Detect); Streptococcus pneumoniae PCR Not Detected (Not Detect); Streptococcus pyogenes (A) PCR Not Detected (Not Detect); mecA Methicillin-Resist Gene Not Detected (Not Detect)
[2020-12-20] MEDS: Insulin LISPRO 300 UNITS/3 ML VIAL SUBQ SCH ×4 (10:00→19:22)
[2020-12-20 10:23] LABS: ABG Base Excess -1 mEq/L (-2 to 3); ABG HCO3 23 mEq/L (21-27); ABG Oxygen Saturation 100 % (95-98); ABG PCO2 36 mmHg (35-45); ABG PH 7.41 pH Units (7.32-7.45); ABG PO2 318 mmHg (85-104); ABG TCO2 24 mEq/L (20-26)
[2020-12-20] MEDS: Aspirin Enteric Coated 81 MG Tablet PO SCH (11:01)
[2020-12-20] MEDS: Insulin DETEMIR 100 UNIT/ML X5UNITS SUBQ SCH (11:02)
[2020-12-20] MEDS: clonazePAM 1 MG TABLET PO SCH ×2 (11:02→20:08)
[2020-12-20] MEDS: Dorzolamide/Timolol OPTH 10 ML BOTTLE BOTH EYES SCH ×2 (11:04→20:10)
[2020-12-20] MEDS ORDERED: CeFAZolin 2 GM/120 ML BAG IVPB ONE (17:05)
[2020-12-20] MEDS ORDERED: Acetaminophen IV 1,000 MG/100 ML BAG IVPB ONE (19:15)
[2020-12-20] MEDS: CeFAZolin 2 GM/120 ML BAG IVPB SCH (23:31)
[2020-12-21] MEDS ORDERED: CeFAZolin 2 GM/120 ML BAG IVPB SCH
[2020-12-21 04:07] LABS: Basophils % 0.2 %; Hemoglobin 11.2 g/dL (12.9-16.9)
[2020-12-21 04:09] LABS: Hematocrit 35.4 % (37.5-50.1); Immature Granulocytes % 1.4 % (0-4); Immature Platelets 3.4 % (1.1-6.1); Lymphocytes % 5.2 %; Mean Corpuscular HGB Conc 31.6 g/dL (31.6-35.5); Mean Corpuscular Hemoglobin 28.5 pg (28.0-33.3); Mean Corpuscular Volume 90.1 fL (83.0-100.0); Monocytes # 1.3 K/mcL (0.0-1.3); Neutrophils # 16.3 K/mcL (1.6-8.9); Platelet Count 294 K/mcL (140-400); Red Blood Count 3.93 M/mcL (4.19-5.50); Red Cell Distribution Width 14.3 % (11.5-14.5); Segmented Neutrophils % 86.2 %; White Blood Count 18.9 K/mcL (4.3-11.1)
[2020-12-21 04:26] LABS: BUN/Creatinine Ratio 49 (6-26); Blood Urea Nitrogen 50 mg/dL (8-23); Calcium 8.8 mg/dL (8.6-10.3); Carbon Dioxide 19 mEq/L (23-29); Chloride 106 mEq/L (98-107); Glucose 199 mg/dL (70-105); Magnesium 2.4 mg/dL (1.6-2.6); Osmolality,Calculated 301 (280-300); Potassium 4.4 mEq/L (3.5-5.1); Sodium 136 mEq/L (136-145); Vancomycin,Trough 15 mcg/mL (5-10); eGFR For African Americans > 60 (> 60); eGFR For Non-African Americans > 60 (> 60)
[2020-12-21] MEDS: *HR* Heparin 5,000 UNIT/ML VIAL SQ SCH ×2 (05:16→17:22)
[2020-12-21] MEDS: CeFAZolin 2 GM/120 ML BAG IVPB SCH ×2 (08:09→17:22)
[2020-12-21] MEDS: clonazePAM 1 MG TABLET PO SCH ×2 (08:10→19:37)
[2020-12-21] MEDS: Dorzolamide/Timolol OPTH 10 ML BOTTLE BOTH EYES SCH ×2 (08:10→21:35)
[2020-12-21] MEDS: Aspirin Enteric Coated 81 MG Tablet PO SCH (08:10)
[2020-12-21] MEDS: Insulin LISPRO 300 UNITS/3 ML VIAL SUBQ SCH ×4 (08:14→20:24)
[2020-12-21] MEDS: Insulin DETEMIR 100 UNIT/ML X5UNITS SUBQ SCH (08:14)
[2020-12-21] MEDS: Ringers Solution, Lactated 1,000 ML IVC SCH ×2 (13:15→21:35)
[2020-12-21 16:15] LABS: ABG Base Excess -2 mEq/L (-2 to 3); ABG HCO3 21 mEq/L (21-27); ABG Oxygen Saturation 96 % (95-98); ABG PCO2 31 mmHg (35-45); ABG PH 7.45 pH Units (7.32-7.45); ABG PO2 77 mmHg (85-104); ABG TCO2 22 mEq/L (20-26); Blood Gas Modality BiLevel; Blood Gas Pressure Support 6 cm H2O
[2020-12-21 20:30] LABS: Adenovirus Not Detected (Not Detect); Bordetella Pertussis Not Detected (Not Detect); Chlamydophila pneumoniae Not Detected (Not Detect); Coronavirus 229E Not Detected (Not Detect); Coronavirus HKU1 Not Detected (Not Detect); Coronavirus NL63 Not Detected (Not Detect); Coronavirus OC43 Not Detected (Not Detect); Human Metapneumovirus Not Detected (Not Detect); Human Rhinovirus/Enterovirus Not Detected (Not Detect); Influenza A Subtype 2009 H1 Not Detected (Not Detect); Influenza B Not Detected (Not Detect); Mycoplasma pneumoniae Not Detected (Not Detect); Parainfluenza Virus 1 Not Detected (Not Detect); Parainfluenza Virus 2 Not Detected (Not Detect); Parainfluenza Virus 3 Not Detected (Not Detect); Parainfluenza Virus 4 Not Detected (Not Detect); Respiratory Syncytial Virus Not Detected (Not Detect); SARS-CoV-2 Not Detected (Not Detect)
[2020-12-22] MEDS: CeFAZolin 2 GM/120 ML BAG IVPB SCH ×2 (01:16→08:20)
[2020-12-22 03:15] LABS: Hematocrit 32.2 % (37.5-50.1); Hemoglobin 10.1 g/dL (12.9-16.9); Mean Corpuscular HGB Conc 31.4 g/dL (31.6-35.5); Mean Corpuscular Hemoglobin 28.4 pg (28.0-33.3); Mean Corpuscular Volume 90.4 fL (83.0-100.0); Mean Platelet Volume 9.2 fL (9.4-12.4); Platelet Count 273 K/mcL (140-400); Red Blood Count 3.56 M/mcL (4.19-5.50); Red Cell Distribution Width 14.4 % (11.5-14.5); White Blood Count 19.2 K/mcL (4.3-11.1)
[2020-12-22 03:21] LABS: VBG HCO3 24 mEq/L (21-27); VBG PCO2 42 mmHg (41-51); VBG PH 7.37 pH Units (7.32-7.42); VBG PO2 105 mmHg (25-50)
[2020-12-22 03:26] LABS: INR 1.6; Prothrombin Time 17.8 Seconds (9.4-12.1)
[2020-12-22 03:36] LABS: Alanine Aminotransferase 11 Units/L (7-52); Albumin 2.6 g/dL (3.5-5.7); Albumin/Globulin Ratio 0.9 (1.1-2.2); Alkaline Phosphatase 74 Units/L (34-104); Aspartate Amino Transferase 19 Units/L (13-39); BUN/Creatinine Ratio 79 (6-26); Bilirubin,Indirect 0.2 mg/dL (0.0-1.0); Bilirubin,Total 0.2 mg/dL (0.3-1.0); Blood Urea Nitrogen 54 mg/dL (8-23); Calcium 8.8 mg/dL (8.6-10.3); Carbon Dioxide 24 mEq/L (23-29); Chloride 112 mEq/L (98-107); Glucose 100 mg/dL (70-105); Magnesium 2.4 mg/dL (1.6-2.6); Osmolality,Calculated 309 (280-300); Sodium 142 mEq/L (136-145); Total Protein 5.6 g/dL (6.4-8.9); eGFR For African Americans > 60 (> 60); eGFR For Non-African Americans > 60 (> 60)
[2020-12-22] MEDS: *HR* Heparin 5,000 UNIT/ML VIAL SQ SCH (05:56)
[2020-12-22] MEDS: Insulin LISPRO 300 UNITS/3 ML VIAL SUBQ SCH ×2 (08:11→11:51)
[2020-12-22] MEDS: clonazePAM 1 MG TABLET PO SCH (08:22)
[2020-12-22] MEDS: Aspirin Enteric Coated 81 MG Tablet PO SCH (08:22)
[2020-12-22] MEDS: Insulin DETEMIR 100 UNIT/ML X5UNITS SUBQ SCH (08:22)
[2020-12-22] MEDS: Dorzolamide/Timolol OPTH 10 ML BOTTLE BOTH EYES SCH (08:23)
[2020-12-22 10:46] VITALS: BP 115/37
[2020-12-22] MEDS ORDERED: Ringers Solution, Lactated 1,000 ML IVC SCH (11:15)
== END 2020-12-22 14:50 | disposition short-term general hospital (02) | DRG 871 ==
LOC: 2NENU 15:22 → EMEROOARM 15:22 → 2NENU 17:35 → SUATTDRO 18:27 → 2NENU 18:56
PROVIDERS: ADMIT Internal Medicine; ATTEND Internal Medicine